=== PATIENT | male | born 1960 | race African-American/Black ===

== ENCOUNTER 2019-09-03 10:36 | Inpatient (IN) ==
[2019-09-03] MEDS ORDERED: ASPIRIN PO ONE (11:01)
[2019-09-03] MEDS ORDERED: DUONEB (A & A) INH ONE ×2 (11:02→15:11)
--- NOTE | 2019-09-03 11:10 | PROVIDER DOCUMENTATION ---
HPI-Screening - General Chief Complaint: Shortness of Breath Stated Complaint: SIDE PAIN COUGH Time Seen by Provider: 09/03/19 10:52 Source: patient Allergies/Adverse Reactions: Allergies Allergy/AdvReac Type Severity Reaction Status Date / Time No Known Allergies Allergy Verified 09/25/18 18:59 Home Medications: Home Medication List Medication Instructions Recorded Confirmed Last Taken Type Amlodipine Besylate 10 mg PO DAILY 09/24/18 11/10/18 Unknown History Calcium Acetate 1,332 mg PO TID 09/24/18 11/10/18 Unknown History Folic Acid/Vit B Complex and C 1 tab PO DAILY 09/24/18 11/10/18 Unknown History [Dialyvite Tablet] Acetaminophen [Tylenol] 500 mg PO Q4H PRN PRN 11/10/18 11/10/18 11/10/18 15:00 History Ciprofloxacin HCl 500 mg PO BID #13 tab 11/10/18 Unknown Rx Sertraline [Zoloft] 25 mg PO DAILY 11/10/18 11/10/18 11/10/18 15:00 History Sertraline [Zoloft] 50 mg PO DAILY 11/10/18 11/10/18 11/10/18 15:00 History 3po Cephalexin [Keflex] 500 mg PO Q6H 7 Days #28 cap 11/29/18 Unknown Rx Patient arrived via EMS?: No HPI: Patient is a 58yo M who presents with complaints of SOB, L rib pain, dry cough, and hoarse voice x10 days. Reports he is a dialysis patient and was last dialyzed Tuesday. Denies fever, n/v/d, sore throat, or CP. Upon examination, patient is taking occasional pauses while speaking. Maintaining O2 sat of 97% on RA. No evidence of retractions/accessory muscle usage or stridor noted. Physical Exam-Screening - CONSTITUTIONAL General Appearance: alert, mild distress. negative: lethargic, slow to respond, obtunded - HEAD, EARS, NOSE, MOUTH & THROAT HENMT: normocephalic/atraumatic, moist mucous membranes. negative: angioedema - NECK Neck: full range of motion, supple, normal inspection - RESPIRATORY Respiratory: no pleuratic chest pain, no accessory muscle use, rhonchi (all lung salazar), increased rate (26). negative: pain on inspiration, retractions, splinting - CARDIOVASCULAR Cardiovascular: regular rate, rhythm, no gallop - MUSCULOSKELETAL Back Exam: normal inspection Extremity: normal range of motion, non-tender, normal gait, normal inspection - SKIN Integumentary: normal color, warm/dry. negative: cyanosis, jaundice, mottled - NEUROLOGIC Neurologic: grossly normal. negative: abnormal gait, aphasia, EOM palsy - PSYCHIATRIC Psych/Mental Status: normal mood/affect, normal thought content, normal thought process, oriented x 3 Screening Depart - Departure ED Screening Disposition: Continued in ED for Treatment Referrals and Follow-Ups: None,PCP [Primary Care Provider] - Attestation - Physician/ SABIHA Attestation Patient care was provided by Advanced Practice Provider:: Yes Advanced Practice Provider:: Lizeth Sinclair Advanced Practice Provider documentation review:: The Mid-level provider documentation, treatment plan and medical decision making was reviewed by the physician who agrees with all treatment and medical decision making by the MLP. The physician spent face to face time with patient:: No Advanced Practice Provider documentation review:: Supervising physician onsite and consulted in the evaluation and care of this patient. The physician did not have a face to face encounter with the patient.
--- NOTE | 2019-09-03 11:26 | Diag Imaging Result Doc PS360 ---
CHEST-2 VIEWS - 09/03/2019 INDICATION: sob COMPARISON: 08/30/2018 FINDINGS: Stable eventration of the right hemidiaphragm causing some elevation. The lungs are clear. Heart size is normal. No pneumothorax or pleural effusion. There is severe degeneration all throughout the spine with degenerative osteophyte formation. IMPRESSION: No acute disease or change from prior. Electronically signed by Kvng Hendrix 09/03/2019 11:22 AM
--- NOTE | 2019-09-03 12:39 | EKG Report ---
Test Performed on : 09/03/2019 12:26:59 PM Test Reason : SOB Blood Pressure : / mmHG Vent. Rate : 072 BPM Atrial Rate : 072 BPM P-R Int : 188 ms QRS Dur : 090 ms QT Int : 430 ms P-R-T Axes : 060 011 025 degrees QTc Int : 470 ms Normal sinus rhythm. Possible Left atrial enlargement Septal infarct (cited on or before 10-OCT-2018) Abnormal ECG When compared with ECG of 29-NOV-2018 15:18, No significant change was found Unconfirmed Result
[2019-09-03 14:08] LABS: BASO# 0.03 X1000 (0.0-0.2); BASO% 0.5 % (0.0-0.8); EOS# 0.12 X1000 (0.0-0.7); EOS% 2.2 % (0.0-10.0); HEMATOCRIT 36.2 % (42.0-52.0); HEMOGLOBIN 10.8 g/dL (14.0-18.0); IMM GRAN# 0.02 X1000 (0.0-0.04); IMM GRAN% 0.4 % (0.0-0.5); LYMPH# 1.04 X1000 (1.2-3.4); MCH 27.6 PG (27-31); MCHC 29.8 g/dL (33-37); MCV 92.6 FL (81-99); MONO# 0.25 X1000 (0.11-0.59); MONO% 4.6 % (1.7-9.3); NEUT# 4.02 X1000 (1.4-6.5); NEUT% 73.3 % (42.2-75.2); PLT 184 X1000 (130-400); RBC 3.91 XMIL (4.7-6.1); RDW 15.8 % (11.5-14.5); WBC 5.48 X1000 (4.8-10.8)
[2019-09-03 14:09] LABS: INR 1.1; PROTIME 14.3 Seconds (11.0-16.0)
[2019-09-03 14:10] LABS: PTT 33.5 Seconds (22.3-41.8)
[2019-09-03 14:47] LABS: ALB/GLOB RATIO 1.4; CALCIUM 8.6 mg/dL (8.8-10.2); POTASSIUM 5.4 mmol/L (3.5-5.1); TOTAL BILIRUBIN 0.34 mg/dL (0.20-1.00); TOTAL PROTEIN 6.8 g/dL (6.3-8.3)
[2019-09-03 14:50] LABS: CREATININE 12.9 mg/dL (0.7-1.2)
[2019-09-03 15:16] LABS: CK INDEX 0.5 (0.0-2.5); CK-MB 6.68 ng/mL (0.0-5.0)
--- NOTE | 2019-09-03 15:40 | Diag Imaging Result Doc PS360 ---
CT THORAX W/O CONTRAST - 09/03/2019 INDICATION: cough, chest pain COMPARISON: Prior chest x-rays FINDINGS: There is right hemidiaphragm elevation with some adjacent linear atelectasis. There is also some hazy atelectasis or infiltrate in both posterior costophrenic angles. There is significant bronchitis in the lung bases bilaterally. No adenopathy. There is mild cardiomegaly. There is calcified coronary artery disease. Upper abdominal images are grossly normal. There is extremely severe degenerative disc disease all throughout the spine with heavy osteophyte formation. No acute bony lesions. IMPRESSION: 1. Advanced bilateral bronchitis. 2. Hazy atelectasis or infiltrate in the lower lobes bilaterally. There may be bronchopneumonia in the left lower lobe. 3. Cardiomegaly. This exam was performed using automated exposure control, adjustment of mA or kV according to patient size, and/or use of iterative reconstruction technique Electronically signed by Kvng Hendrix 09/03/2019 3:37 PM
[2019-09-03] MEDS ORDERED: LEVAQUIN 500 MG/D5W 500 MG/100 ML IVPB IV ONE ×2 (15:49→23:00)
--- NOTE | 2019-09-03 15:52 | PROVIDER DOCUMENTATION ---
This chart was entered by Hedy Oro Scribe, acting as scribe for Manuelito Brar MD. HPI-Respiratory General - General Chief Complaint: Shortness of Breath Stated Complaint: SIDE PAIN COUGH Time Seen by Provider: 09/03/19 10:52 Source: patient Allergies/Adverse Reactions: Patient Allergies Allergy/AdvReac Type Severity Reaction Status Date / Time No Known Allergies Allergy Verified 09/03/19 13:11 Home Medications: Home Medication List Medication Instructions Recorded Confirmed Last Taken Type Calcium Acetate 1,332 mg PO TID 09/24/18 09/03/19 Unknown History Folic Acid/Vit B Complex and C 1 tab PO DAILY 09/24/18 09/03/19 Unknown History [Dialyvite Tablet] Sertraline [Zoloft] 25 mg PO DAILY 11/10/18 09/03/19 11/10/18 15:00 History Azithromycin 1 tab PO DAILY 09/03/19 09/03/19 Unknown History Clonidine HCl 0.1 mg PO BID 09/03/19 09/03/19 Unknown History Sertraline [Zoloft] 50 mg PO QHS 09/03/19 09/03/19 Unknown History - History of Present Illness-Resp Nature of Presenting Problem: Patient is a 58 year old male who presents with shortness of breath. States left lower rib pain, nasal congestion and cough with shortness of breath. Reports symptoms have been present for 8 days. Denies fever Quality of Pain: reports: aching Severity in ED: reports: mild Onset/Duration: reports: other (8 days) Timing: reports: still present, getting worse Cough Quality/Degree: reports: moderate Associated Symptoms: reports: cough, nasal congestion, shortness of breath, other (left lower rib pain) Similar Symptoms Previously?: Yes Recently seen or treated by another doctor?: No Review of Systems - Adult - REVIEW OF SYSTEMS - ADULT Constitutional: reports: no symptoms reported. denies: chills, fever, fatique Eyes: reports: no symptoms reported Ears, Nose, Mouth & Throat: reports: see HPI, sinus problem (congestion). denies: ear pain, throat pain Cardiovascular: reports: no symptoms reported Respiratory: reports: see HPI, cough, shortness of breath. denies: wheezing Gastrointestinal: reports: no symptoms reported Genitourinary: reports: no symptoms reported Musculoskeletal: reports: see HPI, other (left lower rib pain). denies: back pain, neck pain Integumentary: reports: no symptoms reported Neurological: reports: no symptoms reported Psychiatric: reports: no symptoms reported Endocrine: reports: no symptoms reported Hematologic/Lymphatic: reports: no symptoms reported Allergic/Immunologic: reports: no symptoms reported All Other Systems: Reviewed and Negative Past History - Adult - PAST MEDICAL HISTORY-ADULT Review of Records: reports: Old Records Reviewed, Nursing Assessment Review, Medications Reviewed, Social history reviewed & non-contributory. Major Childhood Illnesses: reports: denies history Cardiovascular: reports: HTN Respiratory: reports: denies history Gastrointestinal: reports: denies history Obstetrical/Gynecological: reports: denies history Genitourinary: reports: dialysis (MWF), ESRD, kidney disease Musculoskeletal: reports: chronic pain Neurological: reports: denies history Psychiatric: reports: anxiety Endocrine/Immune: reports: denies history Other Conditions: reports: denies history - PRIOR SURGERIES/PROCEDURES Surgical/Procedure History: reports: reviewed, not pertinent, indwelling device (AV fistual) - IMMUNIZATION STATUS Childhood Immunizations: See Nurse Assessment Flu Vaccine: See Nurse Assessment - FAMILY HISTORY Family History: reviewed, not pertinent - SOCIAL HISTORY Smoking: cigarettes, less than 1 pack/day Provider spent 3-5 mins advising pt. on dangers of tobacco.: Discussed manners to quit use, and f/u contacts for add'l counseling. Physical Exam-General - PHYSICAL EXAM-ADULT Initial Vital Signs Reviewed: Yes - CONSTITUTIONAL General Appearance: alert, no apparent distress. negative: lethargic - HEAD, EARS, NOSE, MOUTH & THROAT HENMT: normocephalic/atraumatic, moist mucous membranes. negative: angioedema - RESPIRATORY Respiratory: rhonchi (coarse rhonchi bilaterally), other (left lower rib tenderness). negative: respiratory distress, increased rate - CARDIOVASCULAR Cardiovascular: normal peripheral pulses, regular rate, rhythm. negative: tachycardia - GASTROINTESTINAL (ABDOMEN) Abdominal Exam: normal bowel sounds, non tender, soft. negative: rigid - MUSCULOSKELETAL Extremity: normal inspection. negative: deformity, erythema - SKIN Integumentary: normal color, normal turgor, warm/dry. negative: diaphoresis - NEUROLOGIC Neurologic: grossly normal. negative: aphasia, facial droop - PSYCHIATRIC Psych/Mental Status: normal mood/affect, oriented x 3. negative: anxious Progress - PLAN OF CARE/RESULTS Progress/Plan/Lab Results: Vital Signs - 8 hr 09/03/19 10:57 09/03/19 12:39 09/03/19 12:57 Pulse Rate 85 78 70 Respiratory Rate 26 H 17 23 Blood Pressure 189/100 175/108 O2 Sat by Pulse Oximetry 96 96 98 09/03/19 13:01 09/03/19 13:14 09/03/19 14:00 Pulse Rate 82 68 88 Respiratory Rate 15 21 21 Blood Pressure 161/106 161/106 O2 Sat by Pulse Oximetry 95 94 L 09/03/19 14:23 09/03/19 14:30 09/03/19 14:45 Pulse Rate 91 H 74 73 Respiratory Rate 23 17 21 Blood Pressure O2 Sat by Pulse Oximetry 97 96 09/03/19 15:00 Pulse Rate 69 Respiratory Rate 19 Blood Pressure O2 Sat by Pulse Oximetry 96 Laboratory Results - last 24 hr 09/03/19 09/03/19 09/03/19 13:53 13:53 13:53 WBC 5.48 RBC 3.91 L Hgb 10.8 L Hct 36.2 L MCV 92.6 MCH 27.6 MCHC 29.8 L RDW Std Deviation 15.8 H Plt Count 184 MPV 9.0 Immature Gran % (Auto) 0.4 Neut % (Auto) 73.3 Lymph % (Auto) 19.0 L Boundary % (Auto) 4.6 Eos % (Auto) 2.2 Baso % (Auto) 0.5 Immature Gran # (Auto) 0.02 Neut # (Auto) 4.02 Lymph # (Auto) 1.04 L Boundary # (Auto) 0.25 Eos # (Auto) 0.12 Baso # (Auto) 0.03 PT INR PTT (Actin FS) Sodium 146 H Potassium 5.4 H Chloride 101 Carbon Dioxide 21 L Anion Gap 24 BUN 70 H Creatinine 12.9 H* Estimated GFR/1.73 m2 5 BUN/Creatinine Ratio 5 Glucose 95 Calculated Osmolality 311 Calcium 8.6 L Total Bilirubin 0.34 AST 27 ALT 14 Alkaline Phosphatase 76 Creatine Kinase 1288 H Creatine Kinase Index 0.5 CK-MB (CK-2) 6.68 H Troponin T Byp[place]-Cuvemdwtkat Pept 22840 H Total Protein 6.8 Albumin 4.0 Globulin 2.8 Albumin/Globulin Ratio 1.4 09/03/19 09/03/19 13:53 13:53 WBC RBC Hgb Hct MCV MCH MCHC RDW Std Deviation Plt Count MPV Immature Gran % (Auto) Neut % (Auto) Lymph % (Auto) Boundary % (Auto) Eos % (Auto) Baso % (Auto) Immature Gran # (Auto) Neut # (Auto) Lymph # (Auto) Boundary # (Auto) Eos # (Auto) Baso # (Auto) PT 14.3 INR 1.10 PTT (Actin FS) 33.5 Sodium Potassium Chloride Carbon Dioxide Anion Gap BUN Creatinine Estimated GFR/1.73 m2 BUN/Creatinine Ratio Glucose Calculated Osmolality Calcium Total Bilirubin AST ALT Alkaline Phosphatase Creatine Kinase Creatine Kinase Index CK-MB (CK-2) Troponin T 0.060 Gpt-Q-Yieqtiwafgd Pept Total Protein Albumin Globulin Albumin/Globulin Ratio Orders Category Date Time Status Cardiac Monitoring DIRECTED Care 09/03/19 11:01 Active Cardiac Monitoring DIRECTED Care 09/03/19 11:01 Active Oxygen Therapy- ED Nursing DIRECTED Care 09/03/19 11:01 Active Saline Loc NOW Care 09/03/19 11:01 Active Renal Diet Diet 09/03/19 15:26 Active CHEST-2 VIEWS [RAD] Stat Exams 09/03/19 11:[address] THORAX W/O CONTRAST [CT] Stat Exams 09/03/19 13:26 Completed BLOOD CULTURE [BLDCUL] Stat Lab 09/03/19 15:48 Ordered CBC WITH ELECTRONIC DIFF [HEME] Stat Lab 09/03/19 13:53 Completed CK PROFILE [SP CHEM] Stat Lab 09/03/19 13:53 Completed COMPREHENSIVE METABOLIC PANEL [CHEM] Stat Lab 09/03/19 13:53 Completed PRO B-NATRIURETIC PEPTIDE Stat Lab 09/03/19 13:53 Completed PROTIME WITH INR [COAG] Stat Lab 09/03/19 13:53 Completed PTT [COAG] Stat Lab 09/03/19 13:53 Completed TROPONIN T Stat Lab 09/03/19 13:53 Completed Albuterol 2.5MG/Ipratrop 0.5MG [Duoneb (A & A)] Med 09/03/19 11:02 Di scontinued 3 ml INH NOW ONE Albuterol 2.5MG/Ipratrop 0.5MG [Duoneb (A & A)] Med 09/03/19 15:11 Discontinued 3 ml INH NOW ONE Aspirin Med 09/03/19 11:01 Discontinued 325 mg PO NOW ONE Levaquin 500 mg/D5w IV Now Med 09/03/19 15:49 Ordered Levofloxacin 500 mg/D5w [Levaquin 500 mg/D5w] 500 mg in 100 ml IV NOW Aerosol Treatments Routine Oth 09/03/19 11:02 Completed Aerosol Treatments Routine Oth 09/03/19 15:11 Active Aerosol Treatments Stat Oth 09/03/19 11:02 Completed Aerosol Treatments Stat Oth 09/03/19 15:11 Active CP/SOB/Palp >45 yrs of Age Stat Oth 09/03/19 11:01 Ordered CP/SOB/Palp >45 yrs of Age Stat Oth 09/03/19 11:01 Ordered EKG [EKG] Stat Ther 09/03/19 11:01 Draft Result Diagrams: 09/03/19 13:53 09/03/19 13:53 - EKG 1 Time of EKG reading by physician:: 12:26 EKG Read and Signed by:: Manuelito Brar EKG Interpretation (*Must complete 3 of following elements*): Abnormal Rate: 72 Rhythm: normal sinus rhythm Faxon: normal MI Interval: normal Comments: possible left atrial enlargement; septal infarct, age undetermined - XRAY 1 XRAY Study: Chest Impression: See EMR Report (Signed CHEST-2 VIEWS - 09/03/2019 INDICATION: sob COMPARISON: 08/30/2018 FINDINGS: Stable eventration of the right hemidiaphragm causing some elevation. The lungs are clear. Heart size is normal. No pneumothorax or pleural effusion. There is severe degeneration all throughout the spine with degenerative osteophyte formation. IMPRESSION: No acute disease or change from prior. Electronically signed by Kvng Hendrix 09/03/2019 11:22 AM 09/03/19 1122 Interpreting Physician: Kvng Hendrix MD Dictated Date/Time: 09/03/19 1122 cc: Lizeth Sinclair; None,PCP) - CT/MRI 1 CT Study: Thorax Impression: See EMR Report ( CT THORAX W/O CONTRAST - 09/03/2019 INDICATION: cough, chest pain COMPARISON: Prior chest x-rays FINDINGS: There is right hemidiaphragm elevation with some adjacent linear atelectasis. There is also some hazy atelectasis or infiltrate in both posterior costophrenic angles. There is significant bronchitis in the lung bases bilaterally. No adenopathy. There is mild cardiomegaly. There is calcified coronary artery disease. Upper abdominal images are grossly normal. There is extremely severe degenerative disc disease all throughout the spine with heavy osteophyte formation. No acute bony lesions. IMPRESSION: 1. Advanced bilateral bronchitis. 2. Hazy atelectasis or infiltrate in the lower lobes bilaterally. There may be bronchopneumonia in the left lower lobe. 3. Cardiomegaly. This exam was performed using automated exposure control, adjustment of mA or kV according to patient size, and/or use of iterative reconstruction technique Electronically signed by Kvng Hendrix 09/03/2019 3:37 PM 09/03/19 1537 Interpreting Physician: Kvng Hendrix MD Dictated Date/Time: 09/03/19 1528 cc: Manuelito Brar MD; None,PCP) Departure - Departure Date of Disposition Decision: 09/03/19 Time of Disposition Decision: 15:51 DIAGNOSIS: CHF (congestive heart failure), ESRD (end stage renal disease) on dialysis, B ronchopneumonia, Chest wall pain Disposition: ADMITTED INPATIENT 09 Certified Medical Emergency: Emergent Condition: Fair Referrals and Follow-Ups: None,PCP [Primary Care Provider] - - Critical Care Note This patient required my direct & personal management of CC.: No Attestation - Physician/ SABIHA Attestation Patient care was provided by Advanced Practice Provider:: No The physician spent face to face time with patient:: Yes Advanced Practice Provider documentation review:: Supervising physician onsite and consulted in the evaluation and care of this patient. The physician did have a face to face encounter with the patient. This chart was documented by the indicated scribe, (Hedy Oro Scribe) and accurately reflects the services I performed and decisions made by me, Manuelito Brar MD, as attested by the provider's signature.
[2019-09-03] MEDS ORDERED: HEPARIN IV PRN (16:10)
[2019-09-03] MEDS ORDERED: NS 2,000 ML MISC PRN (16:10)
[2019-09-03] MEDS ORDERED: DUONEB (A & A) INH PRN (16:33)
[2019-09-03] MEDS ORDERED: ZITHROMAX PO ONE ×2 (16:34→21:00)
--- NOTE | 2019-09-03 20:01 | HISTORY AND PHYSICAL ---
CHIEF COMPLAINT: Shortness of breath, left rib lower rib pain. HPI: This is a 58-year-old gentleman with a history of chronic kidney disease stage 5D on Tuesday, Tuesday, Tuesday hemodialysis, hypertension and cocaine use. He presented to the emergency room complaining of left lower rib pain with nasal congestion, cough and shortness of breath that had been present for 8 days. He states it has been gradually getting worse. He had no new symptoms today, he decided he needed to come in get checked. He was found to have left lower lobe pneumonia on CT scan. Mr. El has a history of chronic kidney disease stage 5D. He is on Tuesday, Tuesday, Tuesday hemodialysis. He was to have dialysis today, although he opted to come to the emergency room to be evaluated instead of going to dialysis. PAST MEDICAL HISTORY: 1. Hypertension. 2. Chronic kidney disease stage 5D with Tuesday, Tuesday, Tuesday hemodialysis. 3. Anxiety. PAST SURGICAL HISTORY: AV fistula. SOCIAL HISTORY: He smokes a pack a day. He uses cocaine. He denies any alcohol use. FAMILY HISTORY: Is positive for end-stage renal disease, chronic kidney disease, his daughter is on dialysis. He had first-degree relatives that had chronic kidney disease as well as hypertension. ALLERGIES: No known drug allergies. HOME MEDICATIONS: A list will be obtained by the nursing staff and once verified will review and restart as appropriate. REVIEW OF SYSTEMS: Discussed with patient with pertinent positives stated in the HPI. He denied any chest pain, syncope, dizziness, palpitations, a productive cough, any fevers or chills, night sweats, recent weight loss or weight gain, any nausea, vomiting, diarrhea, constipation, black or bloody vomitus or stools, any hematuria, dysuria, frequency, urgency. PHYSICAL EXAMINATION: GENERAL: This is a 58-year-old gentleman who is lying on the stretcher in the emergency room in no distress. VITAL SIGNS: Blood pressure is 160/94 with a heart rate of 68, respirations are 18, O2 saturations are 94 to 98 percent on room air. HEENT: Pupils equal, round, react to light. EOMs are intact. Sclerae are anicteric. Head is normocephalic, atraumatic. Mucous membranes are moist. NECK: Supple with trachea midline. No JVD. CARDIOVASCULAR: Regular rate and rhythm. S1 and S2 appreciated. He has no lower extremity edema. Calves are nontender bilateral with peripheral pulses palpable x4 extremities. PULMONARY: He has rhonchi that do not clear to cough in the left lower lobe with some left-sided tenderness. Chest rises and falls symmetric with respiration. Right side is clear. GASTROINTESTINAL: Abdomen soft, nontender, nondistended with bowel sounds in all 4 quadrants. NEUROLOGIC: He is alert, oriented x3. SKIN: Warm and dry. LABS: WBC is 5.4 with hemoglobin 10.8, hematocrit 36.2, platelets of 184,000. Sodium is 146, potassium 5.4, BUN 70, creatinine 12.9 with a glucose of 95. CPK is 1288, CK-MB 6.68 with a proBNP of 12,435. Chest x-ray revealed no acute disease. There is some right hemidiaphragm elevation. Lungs are clear. Heart size is normal. No pneumothorax or pleural effusion. CT of the chest revealed advanced bilateral bronchitis with atelectasis or infiltrate in the lower lobes. There may be bronchopneumonia in the left lower lobe, cardiomegaly. Blood cultures are pending. Urine drug screen has been ordered. ASSESSMENT AND PLAN: 1. Bronchopneumonia left lower lobe. 2. Congestive heart failure acute exacerbation. 3. Chronic kidney disease stage 5D on Tuesday, Tuesday, Tuesday hemodialysis. 4. Left rib chest wall pain. 5. Hypernatremia. 6. Hyperkalemia. 7. Elevated proBNP. 8. Elevated CPK and CK-MB. 9. Rhabdomyolysis. PLAN: The patient will be admitted to the hospital. He will be placed on telemetry. Dr. Ha will be consulted, hemodialysis has been arranged for today. trend troponin and cardiac profile with a CBC and renal profile daily, obtain a urine drug screen. DuoNeb q.4 hours when awake with q.2 hours p.r.n., Rocephin and azithromycin for antibiotic coverage. identify her home medications and continue as appropriate, NicoDerm patch daily, daily weights with I and O. renal diet. incentive spirometer. Plan was discussed with Dr. Berman. Further treatments pending hospital course. I agree with most components of history, physical, assessment and plan. A separate addendum has been dictated. Dictated by ASHLEY Garcia for Jason Berman MD cc: ASHLEY Garcia MD [facility]
--- NOTE | 2019-09-03 20:28 | CONSULTATION ---
DATE OF CONSULTATION: 09/03/2019 REASON FOR ADMISSION: Increased work of breathing with productive cough and pain to his left side for greater than 10 days. CONSULTING PHYSICIAN: Beverly Brar MD HISTORY OF PRESENT ILLNESS: Mr. El is a 58-year-old male who is known to our outpatient services for hemodialysis on Tuesday, Tuesday, Tuesday. The patient had complained of increased work of breathing last week while on dialysis, had indicated that he would probably go to the emergency room for followup. At that time, he was not running any fever. He had no chills. He denied any nausea, vomiting, or diarrhea. Currently, he states that he had this dry cough, nonproductive, hoarse voice x10 days, complaints of shortness of breath with left rib pain. He missed his dialysis treatment today. He continues to deny any fever or chills, nausea, vomiting, or diarrhea. Negative for sore throat or chest pain. The patient is using accessory muscles noted. He is currently on room air. He has a chest x-ray and a CT of the chest that are currently ordered and pending. PAST MEDICAL HISTORY: End-stage renal disease secondary to hypertension, nephrosclerosis. He has anemia, hyperparathyroidism, depression, chronic pain, hyperphosphatemia, hyperlipidemia, iron deficiency anemia. PAST SURGICAL HISTORY: He has had AV fistula to the left forearm, a graft to the right forearm. FAMILY HISTORY: Mother known for hypertension. Father unknown. Sisters are noted to have diabetes, arthritis, anemia, hypertension, and hypothyroidism. Brother noted with diabetes and hypertension. He has a daughter with hypertension and is currently on dialysis. SOCIAL HISTORY: He lives alone. Continues to use tobacco, alcohol and recreational drugs. He has a daughter and several cousins who are attentive to his care. ALLERGIES: Currently listed as no known drug allergies. HOME MEDICATIONS: Have yet to be reconciled, noted to take amlodipine, calcium acetate, Dialyvite vitamin, acetaminophen. He has been on ciprofloxacin per our office. Zoloft. He receives Mircera, and IV iron as indicated at the outpatient clinic. REVIEW OF SYSTEMS: x10 with pertinent positives listed above in the HPI. LABORATORY DATA: His labs are currently pending. PHYSICAL EXAMINATION: Patient's most recent vital signs: Temperature 97.9 degrees, current blood pressure 161/106, heart rate is 68, respirations are 18. He is using accessory muscles. He has had nothing recorded in or out. General: This is a 58-year-old male sitting quietly on a stretcher. He appears chronically ill in no acute distress. Skin: Warm and dry. HEENT: Normocephalic, atraumatic. Conjunctivae are pale, pink. He has LOLIS. Mucous membranes are dry. Neck: Supple. Trachea midline. No evidence of JVD in the upright position. Cardiovascular: He is regular rate and rhythm noted to be sinus rhythm on the monitor. Lungs: Patient has inspiratory wheezes with popping on the left. He does have some retraction noted with some splinting on inhalation, remains on room air. Abdomen: Soft, nontender. Positive bowel sounds. Genitourinary: Not inspected, minimal void with dialysis assist. Extremities: No edema, no clubbing or cyanosis. He does have an AV graft to the right forearm. Neurological: He is alert and oriented x3, able to assist with exam. ASSESSMENT AND PLAN: 1. End-stage renal disease. Patient is due for his routine dialysis treatment today. We will place him on a 2K bath. He is to dialyze for 3.5 hours. We will attempt to pull him to his outpatient dry weight per his routine prescription. 2. Electrolytes and acid-base balance with correction on dialysis. 3. Anemia. This has been stable in the past. Continues on Dialyvite. 4. Increased work of breathing. We are currently waiting on a CT of the thorax without contrast. He has received an albuterol inhaler this a.m. We will defer to the primary care team. I would like to thank you for allowing us to follow with this patient. Dictated by ASHLEY Navarrete for Louis Ha MD Face to face encounter, data reviewed, discussed with Mick Hernandez on 09/03/19. I agree with the above assessment and plan of care. cc: ASHLEY Navarrete MD [facility]
[2019-09-03] MEDS: PHOSLO PO SCH (20:57)
[2019-09-03] MEDS ORDERED: ZOLOFT PO SCH (21:00)
[2019-09-03] MEDS: NICODERM PATCH TD SCH (22:13)
[2019-09-03] MEDS: ROCEPHIN 1 GM in NS 50 ML IV SCH (22:13)
[2019-09-03] MEDS: CATAPRES PO SCH (22:13)
[2019-09-03] MEDS: DUONEB (A & A) INH SCH ×2 (22:16→22:33)
[2019-09-03 22:30] LABS: CK INDEX 0.5 (0.0-2.5); CK-MB 3.85 ng/mL (0.0-5.0)
--- NOTE | 2019-09-03 22:35 | HISTORY AND PHYSICAL ---
ADDENDUM: Addendum to the history and physical dictated by the nurse practitioner. I agree with most components of history, physical, assessment, and plan. In brief, Mr. El is a 58-year-old man with past medical history of essential hypertension, chronic kidney disease stage 5 on hemodialysis, and anxiety, who came in with chief complaints of shortness of breath and left-sided rib cage pain of about 3 to 4 days duration. Apparently, the patient had some congestion in the throat and soreness in the throat 3 or 4 days prior to current presentation. He is an active smoker with a half of pack lasting about 2 days. His congestion and the sore throat was getting better, but he was feeling really having a lot of dry cough and started experiencing some chest discomfort in the left lower rib cage associated with cough, so he did not go to dialysis today and in fact decided to come to the hospital. In the hospital, his vitals were unremarkable except that he had elevated creatinine and chest CT evidence of lower lobe pneumonia, so the hospitalist team was consulted for further management. VITALS: Currently temperature is afebrile to touch. His pulse is 74, respiratory 19, blood pressure of 160/106, and he was saturating 98% on room air. PHYSICAL EXAMINATION: He was not in acute distress. No pallor, cyanosis, clubbing, icterus. LUNGS: Air entry bilaterally equal. No wheeze or crackles. CARDIOVASCULAR: S1, S2 normal. No murmur or gallop. He did not have any localized chest wall tenderness. ABDOMEN: Soft, nontender. EXTREMITY: No lower extremity edema. NEUROLOGIC: He was alert oriented x3. LABS: His CBC was unremarkable except normocytic anemia which was chronic. He did have elevated BUN and creatinine, elevated potassium and elevated sodium. He has mild elevation of troponin and elevation of proBNP, which was his baseline. His EKG had detected normal sinus rhythm, but it did not have any other ST changes. ASSESSMENT AND PLAN: 1. Acute bronchitis with left lower lobe bronchopneumonia. He makes urine and I will follow up with urine Legionella and streptococcal antigen. If he is able to spit out sputum, we will get sputum culture. I will start him on intravenous ceftriaxone and azithromycin and get the influenza screen. 2. Essential hypertension. Continue home clonidine. 3. Anxiety. Continue home sertraline. 4. Chronic kidney disease stage 5 and missed hemodialysis. The patient is going for dialysis today. 5. Active tobacco abuse. Continue nicotine patch. DISPOSITION: If the patient feels significantly better tomorrow and the vitals and blood tests are unremarkable, the patient could be discharged in the next 24 to 48 hours. The patient is in agreement with the plan. cc: Jason Berman MD
[2019-09-04 05:22] LABS: HEMOGLOBIN 9.5 g/dL (14.0-18.0); MCH 27.7 PG (27-31); MCHC 29.7 g/dL (33-37); MCV 93.3 FL (81-99); MPV 8.8 FL (7.4-10.4); RBC 3.43 XMIL (4.7-6.1); RDW 15.5 % (11.5-14.5); WBC 4.93 X1000 (4.8-10.8)
[2019-09-04 05:47] LABS: ALBUMIN 3.5 g/dL (3.5-5.0); CALCIUM 7.9 mg/dL (8.8-10.2); PHOSPHORUS 6.2 mg/dL (2.7-4.5); POTASSIUM 4.8 mmol/L (3.5-5.1)
[2019-09-04 05:57] LABS: CREATININE 9.7 mg/dL (0.7-1.2)
[2019-09-04 06:53] LABS: CK INDEX 0.5 (0.0-2.5); CK-MB 3.12 ng/mL (0.0-5.0)
[2019-09-04] MEDS: PHOSLO PO SCH ×3 (08:14→17:32)
[2019-09-04] MEDS: CATAPRES PO SCH ×2 (08:15→20:43)
[2019-09-04] MEDS: NICODERM PATCH TD SCH (08:15)
[2019-09-04] MEDS: ZOLOFT PO SCH (08:15)
[2019-09-04] MEDS: DUONEB (A & A) INH SCH ×5 (08:31→23:42)
[2019-09-04] MEDS ORDERED: PATIENT'S OWN MED PO SCH (09:00)
[2019-09-04] MEDS: ZITHROMAX PO SCH (12:45)
--- NOTE | 2019-09-04 13:18 | PROVIDER PROGRESS NOTE ---
Progress Note Subjective: patient sitting up to side effects eating breakfast. Complains of coughing all night with left sided pain. Objective: vitals. Temperature 98.2, pulse 84, respirations 18, blood pressure 143/83, 02 sat 96% on room air. General: -[place] male sitting up in bed in no acute distress HEENT: a traumatic, normocephalic. Pupils equal and reactive. Mucous membranes moist. Trachea midline. Skin: warm and dry Neck: Supple, JVD observed in upright position Cardiovascular: S1, S2, regular rate and rhythm. Respiratory: diffuse crackles and wheezes posteriorly with the left diminished base Abdomen: soft, nontender, nondistended. Bowel sounds present : not observed Extremities: Trace edema to bilateral feet. No clubbing or cyanosis. Right forearm graft. Labs: Wbc 4.93, hemoglobin 9.5, hematocrit 32, platelet count 187, sodium 139, potassium 4.8, chloride 99, carbon dioxide 21, BUN 15, creatinine 1.7. Intake zero, output 2171. Impression: Chronic kidney disease 5D. Patient had his hemodialysis treatment yesterday with a 2 L output. He will continue his routine dialysis tomorrow. No changes. Blood pressure. In target. Electrolytes and acid base balance. In target. Anemia. Low but stable. Does not meet transfusion criteria. Fluid volume. Overloaded. He will continue his routine HD treatment tomorrow. Nutrition. Adequate. Medication review. No changes.
--- NOTE | 2019-09-04 15:54 | Diag Imaging Result Doc PS360 ---
US RENAL 2 (RETROPER) COMPLETE - 09/04/2019 INDICATION: decreased renal function TECHNIQUE: COMPARISON: CT from 06/11/2018 FINDINGS: The exam was impossible due to the patient's condition. The exam is nondiagnostic. IMPRESSION: Nondiagnostic. Electronically signed by Kvng eHndrix 09/04/2019 3:52 PM
[2019-09-04] MEDS ORDERED: ROBITUSSIN-DM PO PRN (17:30)
--- NOTE | 2019-09-04 17:31 | ECHO REPORT ---
ORDER DATE: 09/04/2019 INDICATION: A 58-year-old male with dyspnea, CHF, and drug abuse. M-MODE MEASUREMENTS: Left ventricle end diastole: 4.3. Left ventricle end systole: 2.8. Posterior wall: 1.0. Interventricular septum: 1.2. Left atrium: 3.5. Aortic diameter: 3.6. SUMMARY OF 2-DIMENSIONAL IMAGING: The study is very difficult. The parasternal view windows are very limited. 1. Left ventricular function appears to be normal, estimated at 62%. 2. The aortic valve shows calcification of the cusps, especially the non coronary cusp appears to be quite calcified. I do not see any evidence of stenosis. I cannot rule out the possibility of a healed vegetation there. There is no aortic regurgitation. 3. The pulmonic valve is grossly normal. Color flow mapping unremarkable. 4. Tricuspid valve also looks grossly unremarkable. We cannot calculate a pulmonary pressure. 5. The mitral valve opens normally. Color flow mapping shows no regurgitation. 6. Pulsed wave Doppler of mitral inflow shows minimal reversal of the E and the A ratio. Ratio is 0.8. 7. The tissue Doppler of septal and lateral mitral annulus averages 5 cm. There is impaired left ventricular relaxation. 8. There is no pericardial effusion, no mass, and no thrombus. 9. The left atrium is probably mildly enlarged. Clinical correlation is recommended. cc: MD Yolette Kent CRNP
[2019-09-04] MEDS: ROCEPHIN 1 GM in NS 50 ML IV SCH (17:32)
[2019-09-04] MEDS: HEPARIN SUBQ SCH (20:43)
[2019-09-04] MEDS: TESSALON PO SCH (20:43)
[2019-09-04] MEDS ORDERED: MELATONIN PO SCH (21:00)
--- NOTE | 2019-09-04 21:16 | PROGRESS NOTE ---
DATE: 09/04/2019 SUBJECTIVE: The patient is sitting up in a chair. He states that he has been having coughing spells. He has no other complaints. OBJECTIVE: Vital signs: Temperature 98 degrees, blood pressure 149/79, heart rate 84, respirations 15, O2 saturation 100% on room air. General: This is an elderly male sitting in a chair in no acute distress. Heart: S1, S2 normal. Regular rate and rhythm. Lungs: Diminished breath sounds at the bases. No wheezing. No rales. Abdomen: Positive bowel sounds. Soft, nontender, nondistended. Extremities: No edema, no cyanosis. Neurologic: The patient is alert and oriented x4. LABORATORY DATA: White blood cell count 4.9, hemoglobin 9.5, hematocrit 32, platelets 187,000. Sodium 139, potassium 4.8, chloride 99, CO2 is 21, BUN 50, creatinine 9.7, glucose 88. ASSESSMENT AND PLAN: 1. Bilateral lower lobe pneumonia. We will continue with intravenous antibiotics. We will add incentive spirometry and continue with bronchodilator therapy. 2. Chronic kidney disease stage 5D. 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 3. Tobacco dependence. The patient has been counseled about smoking cessation. 4. Hypertension. Continue on clonidine. 5. Insomnia. We will start the patient on melatonin and hold the trazodone at this time. 6. Secondary hyperparathyroidism. Continue on phoslo 7. Deep vein thrombosis prophylaxis. We will start the patient on heparin. cc: Luz Hough MD MTDD
[2019-09-05 04:02] LABS: UR AMPHETAMINES QUAL NONE DETECTED (NONE DETECT); UR BARBITUATES QUAL NONE DETECTED (NONE DETECT); UR BENZODIAZEPIN QUAL NONE DETECTED (NONE DETECT); UR CANNABINOIDS QUAL NONE DETECTED (NONE DETECT); UR COCAINE QUAL PRESUMPTIVE POSITIVE (NONE DETECT); UR METHADONE QUAL NONE DETECTED (NONE DETECT); UR OPIATES QUAL NONE DETECTED (NONE DETECT); UR OXYCODONE QUAL NONE DETECTED (NONE DETECT); UR PCP QUAL NONE DETECTED (NONE DETECT)
[2019-09-05 05:38] LABS: HEMATOCRIT 28.8 % (42.0-52.0); HEMOGLOBIN 8.9 g/dL (14.0-18.0); MCH 28.9 PG (27-31); MCHC 30.9 g/dL (33-37); MCV 93.5 FL (81-99); RBC 3.08 XMIL (4.7-6.1); RDW 15.6 % (11.5-14.5); WBC 4.35 X1000 (4.8-10.8)
[2019-09-05 07:15] LABS: ALBUMIN 3.3 g/dL (3.5-5.0); CALCIUM 7.5 mg/dL (8.8-10.2); PHOSPHORUS 6.3 mg/dL (2.7-4.5); POTASSIUM 5.3 mmol/L (3.5-5.1)
[2019-09-05] MEDS: DUONEB (A & A) INH SCH ×2 (07:51→11:24)
[2019-09-05 07:56] LABS: CREATININE 11.4 mg/dL (0.7-1.2)
[2019-09-05 08:17] VITALS: BP 149/87
[2019-09-05] MEDS ORDERED: NEPHRO-VITE PO SCH (09:00)
[2019-09-05] MEDS ORDERED: NS 2,000 ML MISC PRN (10:00)
[2019-09-05] MEDS ORDERED: TIGHT: 0.2 ML/HR FOR DIALYSIS MISC PRN (10:00)
--- NOTE | 2019-09-05 11:44 | PROVIDER PROGRESS NOTE ---
Progress Note Subjective: patient sitting upright in chair receiving hemodialysis. He denies any uremic complaints Objective: vitals. Temperature 98.1, pulse 81, respirations 18, blood pressure 141/80, 02 sat 96% on room air. General: -[place] male sitting up in chair in no acute distress. HEENT: a traumatic, normocephalic. Pupils equal and reactive. Mucous membranes moist. Trachea midline. Skin: warm and dry Neck: Supple, JVD observed in upright position Cardiovascular: S1, S2, regular rate and rhythm. Respiratory: diffuse crackles and wheezes posteriorly with the left diminished base Abdomen: soft, nontender, nondistended. Bowel sounds present : not observed Extremities: Trace edema to bilateral feet. No clubbing or cyanosis. Right forearm graft. Labs: Wbc 4.35, hemoglobin 8.9, hematocrit 28.8, platelet count 181, sodium 141, potassium 5.3, chloride 100, carbon dioxide 23, BUN 68, creatinine 11.4. Intake 1010, output 200. Impression: Chronic kidney disease 5D. He is receiving his routine hemodialysis today. He plans to discharge after and we will follow up in the clinic. Blood pressure. In target. Electrolytes and acid base balance. In target. Anemia. Low but stable. Does not meet transfusion criteria. Fluid volume. Volume expanded. We will challenge his dry weight by 1kilogram. Nutrition. Adequate. Medication review. No changes.
[2019-09-05] MEDS: TESSALON PO SCH ×2 (11:56→13:42)
[2019-09-05] MEDS: ZITHROMAX PO SCH (11:56)
[2019-09-05] MEDS: PHOSLO PO SCH ×3 (11:56→12:02)
[2019-09-05] MEDS: HEPARIN SUBQ SCH (11:56)
[2019-09-05] MEDS: ZOLOFT PO SCH (11:57)
[2019-09-05] MEDS: CATAPRES PO SCH (11:57)
[2019-09-05] MEDS: NICODERM PATCH TD SCH (11:58)
--- NOTE | 2019-09-05 12:34 | Diag Imaging Result Doc PS360 ---
CHEST-2 VIEWS - 09/05/2019 INDICATION: pneumonia COMPARISON: 09/03/2019 FINDINGS: There is stable right hemidiaphragm elevation. Stable mild bibasilar atelectasis. Stable mild left lower lobe infiltrate. Heart size remains normal. IMPRESSION: No change from prior exams. Electronically signed by Kvng Hendrix 09/05/2019 12:32 PM
--- NOTE | 2019-09-18 16:17 | DISCHARGE SUMMARY ---
ADMISSION DATE: 09/03/2019 DISCHARGE DATE: 09/05/2019 FINAL DISCHARGE DIAGNOSES: 1. Bilateral lower lobe pneumonia. 2. Chronic kidney disease stage 5D, on hemodialysis. 3. Tobacco dependence. 4. Hypertension. 5. Cocaine abuse. 6. Insomnia. 7. Secondary hyperparathyroidism. CONSULTATIONS: Nephrology consultation with Dr. Ha. HOSPITAL COURSE: Mr. El is a 58-year-old male with a history of chronic kidney disease stage 5D, on hemodialysis, and hypertension who presented to the ER with a chief complaint of left lower rib pain and shortness of breath. On admission, a CT of the chest was done that revealed bilateral lobe pneumonia. The patient was admitted to the hospitalist service. Blood cultures were obtained and the patient was started on broad-spectrum antibiotics. Nephrology was consulted for assistance with dialysis management. Slowly over the course of the hospitalization, the patient's respiratory status improved. He was able to maintain normal oxygen saturations on room air. The patient also underwent his routine dialysis during the hospital stay. The patient continued to improve clinically and was ultimately cleared for discharge home on September 05, 2019. DISCHARGE MEDICATIONS: 1. Melatonin 3 mg oral at bedtime. 2. Levaquin 500 mg oral every 48 hours x5 days. 3. Robitussin DM 10 mL oral every 4 hours p.r.n. for cough. 4. Calcium acetate 1332 mg oral 3 times a day. 5. Dialyvite 1 tablet oral daily. 6. Zoloft 25 mg oral daily. 7. Clonidine 0.1 mg oral twice a day. 8. Zoloft 50 mg oral at bedtime. DISCHARGE DIET: Renal diet. ACTIVITY: As tolerated. FOLLOW-UP INSTRUCTIONS: The patient will need to follow up for his routine dialysis 3 times a week as scheduled. cc: Luz Hough MD
== END 2019-09-05 14:45 | disposition home or self-care (01) | DRG 193 ==
LOC: ED 10:36 → SUATTDRO 16:57 → 1N 16:57
PROVIDERS: ATTEND Internal Medicine